=== PATIENT | male | born 1990 | race Caucasian/White ===

== ENCOUNTER 2017-08-30 15:26 | Emergency (ER) | payer OTHER ==
[2017-08-30] MEDS ORDERED: FLEXERIL PO (15:53)
[2017-08-30] MEDS ORDERED: MOTRIN800 MG PO (15:53)
[2017-08-30 17:17] VITALS: BP 141/56
== END 2017-08-30 17:21 | disposition home or self-care (01) | DRG 605 ==
LOC: ED 15:26
DX: S30.0XXA Contusion of lower back and pelvis, initial encounter (principal); W11.XXXA Fall on and from ladder, initial encounter; Y93.H3 Activity, building and construction; Y92.89 Other specified places as the place of occurrence of the external cause; Y99.0 Civilian activity done for income or pay

== ENCOUNTER 2024-08-21 09:44 | Emergency (ER) | payer OTHER ==
[~2024-08-21] VITALS: Ht 180.3 cm; Wt 95.2 kg
[~2024-08-21 09:44] MED LIST: FLEXERIL PO; MOTRIN800 MG PO
[2024-08-21 09:52] VITALS: BP 117/73
[2024-08-21] MEDS ORDERED: Diph, Acellular Pertussis, Tet 0.5 ML/VIAL (Tdap) SDV IM ONE (10:00)
[2024-08-21] MEDS ORDERED: IBUPROFEN 600 MG/TAB PO ONE (10:00)
[2024-08-21 10:01] VITALS: BP 121/75
[2024-08-21 10:16] VITALS: BP 115/60
[2024-08-21 10:25] VITALS: BP 115/60
== END 2024-08-21 10:25 | disposition home or self-care (01) | DRG 605 ==
LOC: ED 09:44
PROC: 0HQGXZZ Repair Left Hand Skin, External Approach (ICD-10-PCS; principal; 2024-08-21)
DX: S61.012A Laceration without foreign body of left thumb without damage to nail, initial encounter (principal); W26.0XXA Contact with knife, initial encounter; Y99.0 Civilian activity done for income or pay